=== PATIENT | female | born 1940 | race Caucasian/White ===

== ENCOUNTER 2016-11-14 07:44 | Emergency (ER) | payer OTHER, BC ==
[2016-11-14 07:50] VITALS: RESP 18
[2016-11-14 08:23] LABS: % IMMATURE GRANULYOCYTES 0.4 % (0.0-1.1); ABSOLUTE IMMATURE GRANULOCYTES 0.04 10^3/uL (0.00-0.10); ADD DIFF? NO; ADD MORPH? NO; ADD SCAN? NO; ATYPICAL LYMPHOCYTE FLAG 10 (0-99); FRAGMENT RBC FLAG 0 (0-99); HEMATOCRIT 42.5 % (38.0-47.0); HEMOGLOBIN 14.5 g/dL (12.6-16.3); LEFT SHIFT FLG 0 (0-99); LIPEMIA HEMOLYSIS FLAG 90 (0-99); MEAN CELL HEMOGLOBIN 31.6 pg (27.9-34.1); MEAN CELL HEMOGLOBIN CONCENTR. 34.1 g/dL (32.4-36.7); MEAN CELL VOLUME 92.6 fL (81.5-99.8); MEAN PLATELET VOLUME 8.9 fL (8.7-11.7); PLATELET CLUMPS FLAG 0 (0-99); PLATELET COUNT 291 10^3/uL (150-400); RED BLOOD CELL COUNT 4.59 10^6/uL (4.18-5.33); RED CELL DISTRIBUTION WIDTH 14.3 % (11.5-15.2)
--- NOTE | 2016-11-14 08:27 | EDPHY ---
H & P Stated Complaint: Saw PCP yesterday;sent for eval SOB>1 wk. HPI/ROS: CHIEF COMPLAINT: Dyspnea HISTORY OF PRESENT ILLNESS: The patient is a 76 y/o female arriving with her daughter complaining of shortness of breath for the last 10 days. She has a history of bronchiectasis and baseline cough, but denies prior shortness of breath with those symptoms. She is visiting from [place] and flew in 10 days ago. Her symptoms began shortly after landing at the airport. The last time she visited this elevation she had some mild dyspnea and fatigue. Her recent shortness of breath is intermittent and can be present at rest though it never wakes her from sleep. It is aggravated with exertion like walking her dog. She has associated fatigue. She denies chest pain, dizziness, fever, leg pain or swelling. She contacted her grill prep cook in [place] and he recommended evaluation with a PCP for these symptoms. She saw Dr. Dodge yesterday and he recommended evaluation in the ED. She notes she had a recent routine screening echocardiogram that was the same as previous. She plans to be in [place] for a month. REVIEW OF SYSTEMS: Constitutional: No fever, no chills Eyes: No visual changes ENT: No sore throat Respiratory: see HPI Cardiac: No chest pain Gastrointestinal: No nausea, no vomiting, no abdominal pain Genitourinary: No hematuria, no dysuria Musculoskeletal: No leg pain or swelling Skin: No rash Neurological: No headache, no numbness, no weakness Psychiatric: No depression - Personal History Current Tetanus Diphtheria and Acellular Pertussis (TDAP): Yes - Medical/Surgical History PMH: PMH includes: 1. Sjogren's 2. Fibromyalgia 3. Bronchiectasis 4. Polymyalgia rheumatica with long-term steroid use that now causes "mobility issues" 5. Mitral valve prolapse Hx Chronic Respiratory Disease: Yes Other PMH: autoimmune deficiency - Social History Smoking Status: Never smoked Additional Social History: Daughter at bedside. Visiting from [place]. Will be here for 1 month. - Physical Exam Exam: General Appearance: Alert, no distress Eyes: Pupils equal and round, no conjunctival pallor or injection ENT, Mouth: Mucous membranes moist Neck: Normal inspection Respiratory:Diffuse expiratory rales bilaterally Cardiovascular: Regular rate and rhythm Gastrointestinal: Abdomen is soft and non- tender Neurological: A&O, nonfocal, normal gait Skin: Warm and dry, no rash Extremities: Nontender, no pedal edema Psychiatric: Mood and affect normal Constitutional: Initial Vital Signs Temperature (C) 36.4 C 11/14/16 07:45 Heart Rate 69 11/14/16 07:45 Respiratory Rate 18 11/14/16 07:45 Blood Pressure 144/78 H 11/14/16 07:45 O2 Sat (%) 90 L 11/14/16 07:45 O2 Delivery Mode Room Air Allergies/Adverse Reactions: lidocaine Allergy (Intermediate, Uncoded 11/14/16 07:50) sz but only if "ingested" Home Medications: Medication Instructions Recorded [place] 11/14/16 DULoxetine [Cymbalta 30 MG (*)] 40 mg PO 11/14/16 Irbesartan [Avapro 150 mg (*)] 150 mg PO DAILY 11/14/16 Metoprolol Succinate Xr [Toprol Xl 100 mg PO DAILY 11/14/16 100 mg (*)] traZODone [traZODONE 100MG (*)] 100 mg PO 11/14/16 Medical Decision Making - Diagnostics Imaging: I viewed and interpreted images myself ED Course/Re-evaluation: This is a 76 y/o female with a history of bronchiectasis and polymyalgia rheumatica who presents with a 10-day history of intermittent dyspnea since flying to [place] from [place]. Dyspnea is worse with exertion, but also present at rest and associated with fatigue. Symptoms are similar but more severe than previous visits to altitude. She has diffuse expiratory rales bilaterally. SpO2 is 90%. I suspect elevation-related dyspnea given her underlying lung disease, but we will also screen for cardiac causes, embolic causes, and basic laboratory abnormalities. Plan for IV, labs including d-dimer and BNP, EKG, and chest x-ray. The 12 lead EKG was interpreted by myself. Sinus rhythm rate 67, left anterior fascicular block, poor R-wave progression. See hard copy and/or "tracemaster" electronic copy for interpretation. Reassessed patient and discussed work up. Her chest x-ray does not show an infiltrate. Her d-dimer and BNP is negative. EKG does not show ischemia. Clinical presentation c/w altitude-related SOB. Her BGL is elevated and I recommended follow up with PCP for follow up evaluation on this. She will be discharged with a script for home O2 and strict return precautions. She is comfortable with this plan. 0930: Consulted with Dr. Dodge. He will follow up with patient as an outpatient. Differential Diagnosis: inludes though not limited to PE, pneumonia, pulm edema, ACS - Data Points Laboratory Results: Laboratory Results 11/14/16 08:14 11/14/16 08:14 Departure - Departure Disposition: Home, Routine, Self-Care Clinical Impression: Dyspnea Condition: Good Instructions: Dyspnea (ED) Additional Instructions: Your chest x-ray does not show pneumonia and your d-dimer lab test does not show evidence of a blood clot. Your blood glucose level is elevated at 189 and we recommend follow up with Dr. Dodge for evaluation for diabetes. 1. Use oxygen as needed for dyspnea while at altitude and at exertion. 2. Return to the ED for chest pain, worsening shortness of breath, fever, or other worsening of condition. Referrals: Donavan Dodge MD [Primary Care Provider] - As per Instructions Report Scribed for: Lillian Squires Report Scribed by: Conchis Robles Date of Report: 11/14/16 Time of Report: 08:03 Physician Review and Approval Statement: 11/14/16 08:03 Portions of this note were transcribed by a medical i d [employer]. I personally performed a history, physical exam, medical decision making, and confirmed accuracy of information the transcribed note.
[2016-11-14 08:41] LABS: ANION GAP 16 mEq/L (8-16); CALCIUM 9.9 mg/dL (8.5-10.4); CARBON DIOXIDE 21 mEq/l (22-31); CHLORIDE 108 mEq/L (97-110); GLOMERULAR FILTRATION RATE 54; GLUCOSE 189 mg/dL (70-100); POTASSIUM 3.9 mEq/L (3.5-5.2); SODIUM 145 mEq/L (134-144)
[2016-11-14 10:20] VITALS: BP 177/83; PULSE 63; TEMP 97.9
--- NOTE | 2016-11-14 10:28 | CPEKG ---
Heart Rate: 67 RR Interval: 896 P-R Interval: 172 QRSD Interval: 94 QT Interval: 428 QTC Interval: 452 P [place]: 39 QRS [place]: -58 T Wave [place]: 19 EKG Severity - ABNORMAL ECG - EKG Impression: SINUS RHYTHM EKG Impression: LEFT ANTERIOR FASCICULAR BLOCK EKG Impression: Poor R-wave progression Electronically Signed By: Lillian Squires 14-Nov-2016 14:35:51
[2016-11-14 11:02] VITALS: O2SAT 92
[2016-11-14 11:09] LABS: HEMOGLOBIN A1C 5.7 % (4.0-6.0)
== END 2016-11-14 11:07 | disposition home or self-care (01) ==
DX: R06.00 Dyspnea, unspecified (principal)